=== PATIENT | female | born 1965 | race Caucasian/White ===

== ENCOUNTER 2016-11-21 15:29 | Emergency (ER) | payer BC, OTHER ==
--- NOTE | 2016-11-21 16:00 | ERNOTE ---
Lower Extremity HPI - Narrative Date of Service: 11/21/16 - General Lower Extremities Pain: leg: left Time Seen by Provider: 11/21/16 15:49 Source: patient, RN notes reviewed Exam Limitations: no limitations - Immun/Allergies/Home Medications Immunizations: IMMUNIZATION HX Immunizations Up to Date Yes History of Influenza Vaccine Yes Hx Pneumococcal Vaccination Yes Allergies/Adverse Reactions: Allergies Allergy/AdvReac Type Severity Reaction Status Date / Time sumatriptan [From Imitrex] Allergy Severe Tongue Verified 05/15/15 17:11 Swelling sumatriptan succinate Allergy Severe Tongue Verified 05/15/15 17:11 [From Imitrex] Swelling Home Medications: HOME MEDICATIONS Hydrochlorothiazide [Hydrodiuril] 25 mg PO DAILY 11/17/14 [Last Taken Unknown] Levothyroxine Sodium [Synthroid] 50 mcg PO DAILY 11/17/14 [Last Taken Unknown] Multivitamins [Multivitamin Klaus] 1 cap PO DAILY 11/17/14 [Last Taken Unknown] Omeprazole [Prilosec] 20 mg PO DAILY 11/17/14 [Last Taken Unknown] - History of Present Illness Narrative: James is a 51 year old female who presents to the ED from home for left calf pain. She had a lung nodule removed on 11/15/16 at [facility]. She had a DVT after a Whipple procedure approximately 2 years ago. She began having pain approximately 2 hours ago without incident. She is not currently on any anticoagulants. She has not taken anything for pain. Occurred: this afternoon Method of Injury: Reports: no apparent injury Prior Treament: Reports: similar symptoms before Review of Systems - Review of Systems Constitutional: Absent: fever, chills EYE: Present: no symptoms reported ENT: Present: no symptoms reported Respiratory: Absent: shortness of breath, cough Cardiology: Absent: chest pain, edema, claudication Gastrointestinal/Abdominal: Absent: nausea, vomiting Genitourinary: Present: no symptoms reported Musculoskeletal: Present: muscle pain. Absent: joint pain, joint swelling Skin: Absent: rash, lesions, lumps, change in color Neurological: Absent: weakness, numbness, tingling Endocrine: Present: no symptoms reported Hematologic/Lymphatic: Present: no symptoms reported Psych: Present: no symptoms reported - Patient's Past Medical History Patient History - Medical: Arthritis, GERD, Headache, Hypothyroidism, Migraines Patient History - Cardiac/Respiratory: Deep Vein Thrombosis, Pulmonary Embolism , Other - Pulmonary nodule Patient History - Cancer: Pancreatic Patient History - Surgical Procedures: Other - Pulmonary nodule removed Patient History - Other: None LMP (females 10-50): Menopausal - Family History Mother Family History - Medical: , Diabetes Type 2 Family History - Cardiac/Respiratory: CVA/Stroke, Myocardial Infarction Father Family History - Medical: Family History - Cardiac/Respiratory: CHF, Myocardial Infarction - Social History Living Situations: home Abuse History: No History of abuse Psych History: No pertinent hx Smoking Status: Former smoker Alcohol Use: rarely Drug Use: none - Immunizations Immunizations Up to Date: Yes Hx Pneumococcal Vaccination: Yes History of Influenza Vaccine: Yes Physical Exam - Physical Exam General Appearance: Present: wd/wn, alert, no apparent distress Neck: Present: normal inspection, nontender, supple Respiratory: Present: no respiratory distress, normal breath sounds, no accessory muscle use, lungs clear Cardiovascular/Chest: Present: regular rate, rhythm, no murmur, normal peripheral pulses Extremity Exam: Present: normal inspection, no edema, normal range of motion, other - mild tenderness in left calf, no redness or induration, negative Gina' s sign Neurological Exam: Present: alert, oriented, normal mood/affect, no motor/ sensory deficits Skin Exam: Present: normal color, warm/dry ED Progress - Vital Signs Patient's Vital Signs:: I have reviewed the patient's vital signs. Vital Signs: Vital Signs 11/21/16 15:38 Temperature 37.2 C Pulse Rate 100 Respiratory 18 Rate Blood Pressure 136/83 O2 Sat by Pulse 96 Oximetry - CT/Ultrasound CT/Ultrasound Narrative: US of left lower extremity negative for DVT - Progress/Reassessment Chief Complaint: Lower Extremity Pain/ Injury Progress:: Unchanged Departure Clinical Impression: Pain of left calf - Departure Disposition: Home self-care Condition: Good Instructions: Deep Vein Thrombosis Additional Instructions: Continue your current medications Follow up with any other concerns Referrals: Dylan Huggins DO [Primary Care Provider] -
[2016-11-21 17:02] VITALS: BP 128/92
== END 2016-11-21 17:03 | disposition home or self-care (01) ==
LOC: ER 15:29
DX: M79.662 Pain in left lower leg (principal); Z85.07 Personal history of malignant neoplasm of pancreas; Z87.891 Personal history of nicotine dependence

== ENCOUNTER 2017-06-19 10:23 | Emergency (ER) | payer BC, OTHER ==
--- NOTE | 2017-06-19 10:50 | ERNOTE ---
Dyspnea - General Presenting Symptoms: shortness of breath, difficulty of breathing Time Seen by Provider: 06/19/17 10:33 Exam Limitations: no limitations - Immun/Allergies/Home Medications Immunizations: IMMUNIZATION HX Immunizations Up to Date Yes History of Influenza Vaccine No Hx Pneumococcal Vaccination No Allergies/Adverse Reactions: Allergies sumatriptan [From Imitrex] Allergy (Severe, Verified 05/15/15 17:11) Tongue Swelling sumatriptan succinate [From Imitrex] Allergy (Severe, Verified 05/15/15 17:11) Tongue Swelling Home Medications: HOME MEDICATIONS Levothyroxine Sodium [Synthroid] 50 mcg PO DAILY 11/17/14 [Last Taken Unknown] Multivitamins [Multivitamin Klaus] 1 cap PO DAILY 11/17/14 [Last Taken Unknown] Omeprazole [Prilosec] 20 mg PO DAILY 11/17/14 [Last Taken Unknown] Cefdinir [Omnicef] 300 mg PO Q12H 06/19/17 [Last Taken Unknown] Enoxaparin Sodium [Lovenox] 100 mg SQ DAILY 06/19/17 [Last Taken Unknown] Furosemide [Lasix] 40 mg PO DAILY 06/19/17 [Last Taken Unknown] HYDROcodone/ACETAMINOPHEN [[place] 5-325 Tablet] 1 - 2 tab PO Q4H PRN 06/19/17 [ Last Taken Unknown] Lipase/Protease/Amylase [Creon Dr 12,000 Units Capsule] 1 each PO TID 06/19/17 [ Last Taken Unknown] Spironolactone [Aldactone] 100 mg PO DAILY 06/19/17 [Last Taken Unknown] traZODone HCL [Trazodone HCl] 50 mg PO HS 06/19/17 [Last Taken Unknown] - History of Present Illness Narrative: Patient is undergoing therapy for both pancreatic cancer and a DVT and had her last chemotherapy done 2 days ago. While she is always somewhat short of breath last night and overnight as a sudden onset of increased shortness of breath. She describes the dyspnea as being at least moderate in intensity. Severity: moderate Treatment INDEX CLERK: by patient Initiating event: Reports: none Frequency of episodes: Reports: no prior episodes Associated Symptoms-Dyspnea: Reports: denies symptoms Prior Treatment: Reports: recently seen, treated by physician Review of Systems - Review of Systems Constitutional: Present: See HPI EYE: Present: no symptoms reported ENT: Present: no symptoms reported Respiratory: Present: See HPI, shortness of breath Cardiology: Present: no symptoms reported Gastrointestinal/Abdominal: Present: no symptoms reported Genitourinary: Present: no symptoms reported Musculoskeletal: Present: no symptoms reported Skin: Present: no symptoms reported Neurological: Present: no symptoms reported Endocrine: Present: no symptoms reported Hematologic/Lymphatic: Present: no symptoms reported Psych: Present: no symptoms reported - Patient's Past Medical History Patient History - Medical: Arthritis, GERD, Headache, Hypothyroidism, Migraines Patient History - Cardiac/Respiratory: Deep Vein Thrombosis, Pulmonary Embolism , Other Patient History - Cancer: Pancreatic Patient History - Surgical Procedures: Cancer Surgery, Other Patient History - Other: None - Family History Mother Family History - Medical: , Diabetes Type 2 Family History - Cardiac/Respiratory: CVA/Stroke, Myocardial Infarction Father Family History - Medical: Family History - Cardiac/Respiratory: CHF, Myocardial Infarction - Social History Living Situations: home Abuse History: No History of abuse Psych History: No pertinent hx Smoking Status: Never smoker Have you smoked in the past 12 months: No Do you dip or chew tobacco: No Alcohol Use: rarely Drug Use: none - Immunizations Immunizations Up to Date: Yes Hx Pneumococcal Vaccination: No History of Influenza Vaccine: No Physical Exam - Physical Exam General Appearance: Present: wd/wn, alert, moderate distress Head Exam: Present: normal inspection Eye Exam: Normal inspection: bilateral, PERRL: bilateral Ears, Nose, Throat: Present: normal ENT inspection, H, normal pharynx Neck: Present: normal inspection, nontender Respiratory: Present: no accessory muscle use, chest nontender, respiratory distress, other - patient has diminished breath sounds in both bases Cardiovascular/Chest: Present: regular rate, rhythm, no murmur, normal peripheral pulses Gastrointestinal/Abdominal: Present: normal bowel sounds, nontender, nondistended, soft, no organomegaly Rectal Exam: Present: deferred Back Exam: Present: normal inspection, normal range of motion Extremity Exam: Present: normal inspection, non-tender, no edema, normal range of motion Neurological Exam: Present: alert, oriented, normal mood/affect Skin Exam: Present: normal color, warm/dry Lymphatic Exam: Present: no adenopathy ED Progress - Results and Orders Patient's Lab Results:: I have reviewed the patient's lab results. - Vital Signs Patient's Vital Signs:: I have reviewed the patient's vital signs. Vital Signs: Vital Signs 06/19/17 06/19/17 10:30 10:36 Temperature 37.3 C Pulse Rate 103 H 103 H Respiratory 20 19 Rate Blood Pressure 124/91 124/91 O2 Sat by Pulse 98 97 Oximetry - X-Ray X-Ray #1 X-Ray: chest Interpretation: Reviewed by me - CT/Ultrasound CT/Ultrasound Narrative: CT of the chest was reviewed by me - Progress/Reassessment Chief Complaint: Dyspnea Plan - Plan Plan: After numerous and fairly lengthy discussions with the department of oncology at the [facility], it was recommended that the patient come to the emergency department where an oncology fellow can be consulted and they can arrange for an interventional radiology consult for tapping the lungs for the pleural effusion and consider a valve in the abdomen for the chronic ascites. Patient's vital signs are stable and I do not feel she needs to go by ambulance and my initial hope was that the Department of oncology could see her for seen tomorrow morning and arrange for all this is now patient, however they suggested that she go to emergency department tonight is that we'll be the quickest and the easiest for the patient. Patient's states that he'll be more than glad to drive his up and to arrange for all the tests to be undertaken there. Departure Clinical Impression: Pleural effusion Ascites Qualifiers: Ascites type: other type Qualified Code(s): R18.8 - Other ascites - Departure Disposition: Home self-care Condition: Good Instructions: Pleural Effusion, Ascites Referrals: Dylan Huggins DO [Primary Care Provider] -
[2017-06-19 11:13] LABS: Hematocrit 27.8 % (37.0-47.0); Hemoglobin 8.8 gm/dL (12.5-16.0); Mean Cell Volume 87.4 fl (78-100); Mean Corpuscular Hemoglobin 27.7 pg (27-31); Mean Corpuscular Hgb Conc 31.7 g/dl (32-36); Mean Platelet Volume 10.3 fl (6.0-9.5); Platelet Count 236 K/mm3 (150-450); Red Blood Count 3.18 M/mm3 (4.2-5.4); Red Cell Distribution Width 19.2 % (11.5-14.0); White Blood Count 50.3 K/mm3 (4.0-10.5)
[2017-06-19 11:20] LABS: Total Cells Counted 100
[2017-06-19 11:21] LABS: Prothrombin Time (Patient) 12.9 Seconds (9.4-11.4)
[2017-06-19 11:23] LABS: INR 1.24 INR (0.90-1.10); Partial Thrombolplastin Time 32.6 Seconds (24-32)
[2017-06-19 11:29] LABS: ALT 26 U/L (19-67); AST 53 U/L (0-48); Alkaline Phosphatase * 206 U/L (50-170); Anion Gap 10.5 mmol/L (6.8-13.8); BUN/Creatinine Ratio 15.5 (9.0-21.6); Bilirubin, Total 1.3 mg/dL (0.0-1.1); Blood Urea Nitrogen 11 mg/dL (3-23); Ca. Corrected For Albumin 8.6 mg/dL (8.4-10.2); Calcium * 7.3 mg/dL (7.9-10.9); Carbon Dioxide 27.1 mmol/L (24-32.6); Chloride 100 mmol/L (97-106); Glucose * 153 mg/dL (70-110); Magnesium 1.6 mg/dL (1.2-2.8); Potassium 3.6 mmol/L (3.4-4.6); Sodium 134 mmol/L (132-142); Total Protein 7.1 gm/dL (6.2-8.2); Troponin I Less than 0.017 ng/ml (0.00-0.10)
[2017-06-19 11:33] LABS: Band 12 % (0-2.0); Lymphocyte 3 % (20-51); Neutrophil 85 % (42-75); Neutrophil # 42.8 K/mm3 (1.3-6.0); Platelet Estimate Normal (NORMAL); Target Cells 2+
[2017-06-19 11:34] LABS: Anisocytosis 3+; Macrocytosis 2+
[2017-06-19 11:35] LABS: Schistocytes 1+
[2017-06-19 11:36] LABS: Dohle Bodies 1+; Tear Drop Cells 1+
[2017-06-19 14:39] LABS: Urine Bilirubin Negative (NEGATIVE); Urine Blood Negative /ul (NEGATIVE); Urine Ketone Negative (NEGATIVE); Urine Nitrite Negative (NEGATIVE); Urine Protein Negative (NEGATIVE); Urine Specific Gravity <=1.005 SP.GR. (1.005-1.010); Urine Urobilinogen Normal (NORMAL); Urine pH 5.5 pH (5.0-7.0)
[2017-06-19 14:46] LABS: Urine Appearance Clear; Urine Bacteria None Seen; Urine Color Yellow; Urine RBC None Seen /hpf (0-5); Urine WBC None Seen /hpf (0-5)
[2017-06-19 16:27] VITALS: BP 103/73
== END 2017-06-19 16:07 | disposition short-term general hospital (02) ==
LOC: ER 10:23
DX: J90 Pleural effusion, not elsewhere classified (principal); R18.8 Other ascites; M19.90 Unspecified osteoarthritis, unspecified site; K21.9 Gastro-esophageal reflux disease without esophagitis; E03.9 Hypothyroidism, unspecified; Z86.718 Personal history of other venous thrombosis and embolism; Z86.711 Personal history of pulmonary embolism; Z79.01 Long term (current) use of anticoagulants; Z85.07 Personal history of malignant neoplasm of pancreas

== ENCOUNTER 2017-08-30 20:35 | Emergency (ER) | payer BC, OTHER ==
[2017-08-30] MEDS ORDERED: PROMETHAZINE HCL 25 MG in DEXTROSE 5 % IN WATER 50 ML IV ONE ×2 (20:50)
--- NOTE | 2017-08-30 21:04 | ERNOTE ---
ER Female HPI Date of Service: 08/30/17 Stated Complaint: CAN'T PEE Time Seen by Provider: 08/30/17 20:37 Source: patient Exam Limitations: no limitations Immunizations: IMMUNIZATION HX Immunizations Up to Date Yes History of Influenza Vaccine Yes Hx Pneumococcal Vaccination Yes Allergies/Adverse Reactions: Allergies sumatriptan [From Imitrex] Allergy (Severe, Verified 05/15/15 17:11) Tongue Swelling sumatriptan succinate [From Imitrex] Allergy (Severe, Verified 05/15/15 17:11) Tongue Swelling Home Medications: HOME MEDICATIONS Levothyroxine Sodium [Synthroid] 50 mcg PO DAILY 11/17/14 [Last Taken Unknown] Multivitamins [Multivitamin Klaus] 1 cap PO DAILY 11/17/14 [Last Taken Unknown] Omeprazole [Prilosec] 20 mg PO DAILY 11/17/14 [Last Taken Unknown] Cefdinir [Omnicef] 300 mg PO Q12H 06/19/17 [Last Taken Unknown] Enoxaparin Sodium [Lovenox] 100 mg SQ DAILY 06/19/17 [Last Taken Unknown] Furosemide [Lasix] 40 mg PO DAILY 06/19/17 [Last Taken Unknown] HYDROcodone/ACETAMINOPHEN [[place] 5-325 Tablet] 1 - 2 tab PO Q4H PRN 06/19/17 [ Last Taken Unknown] Lipase/Protease/Amylase [Creon Dr 12,000 Units Capsule] 1 each PO TID 06/19/17 [ Last Taken Unknown] Spironolactone [Aldactone] 100 mg PO DAILY 06/19/17 [Last Taken Unknown] traZODone HCL [Trazodone HCl] 50 mg PO HS 06/19/17 [Last Taken Unknown] - History of Present Illness Narrative: This patient presents to the emergency room for sensation of urinary retention and inability to urinate today. She doesn't have any dysuria or urinary pain or urgency or dysuria. She states that she is unable to urinate. This patient' s history is significant for pancreatic cancer. Patient also complains of the sensation of pressure and distention in her suprapubic area of her belly. Review of Systems - Review of Systems Constitutional: Present: fatigue, malaise EYE: Present: no symptoms reported ENT: Present: no symptoms reported Respiratory: Present: no symptoms reported Cardiology: Present: no symptoms reported Gastrointestinal/Abdominal: Present: no symptoms reported Genitourinary: Present: See HPI Musculoskeletal: Present: no symptoms reported Skin: Present: no symptoms reported - Patient's Past Medical History Patient History - Medical: Arthritis, GERD, Headache, Hypothyroidism, Migraines Patient History - Cardiac/Respiratory: Deep Vein Thrombosis, Pulmonary Embolism , Other Patient History - Cancer: Pancreatic Patient History - Surgical Procedures: Cancer Surgery, Other Patient History - Other: None - Family History Mother Family History - Medical: , Diabetes Type 2 Family History - Cardiac/Respiratory: CVA/Stroke, Myocardial Infarction Father Family History - Medical: Family History - Cardiac/Respiratory: CHF, Myocardial Infarction - Social History Living Situations: home Abuse History: No History of abuse Psych History: No pertinent hx Smoking Status: Never smoker Alcohol Use: none Drug Use: none - Immunizations Immunizations Up to Date: Yes Hx Pneumococcal Vaccination: Yes History of Influenza Vaccine: Yes Physical Exam - Physical Exam General Appearance: Present: other - patient does have a history of pancreatic cancer she is thin she appears pale but she is not in any distress. Head Exam: Present: normal inspection, no evidence of injury Respiratory: Present: no respiratory distress, normal breath sounds, no accessory muscle use, chest nontender, lungs clear Cardiovascular/Chest: Present: regular rate, rhythm, no murmur, normal peripheral pulses Gastrointestinal/Abdominal: Present: normal bowel sounds, soft, other - there appears to be moderate suprapubic fullness and tenderness upon examination. I believe I am feeling a distended bladder on this patient ED Progress - Results and Orders Patient's Lab Results:: I have reviewed the patient's lab results. - Vital Signs Patient's Vital Signs:: I have reviewed the patient's vital signs. Vital Signs: Vital Signs 08/30/17 20:38 Temperature 37.3 C Pulse Rate 80 Respiratory 18 Rate Blood Pressure 145/95 O2 Sat by Pulse 99 Oximetry - Progress/Reassessment Chief Complaint: Genitourinary Problem Plan - Plan Plan: UA is negative for UTI. Will leave a Tristan in place pt is to follow up with PCP On Friday Departure Clinical Impression: Urinary retention with incomplete bladder emptying - Departure Disposition: Home self-care Condition: Good Instructions: Acute Urinary Retention, Female Referrals: Dylan Huggins DO [Primary Care Provider] -
[2017-08-30 21:15] LABS: Hematocrit 31.1 % (37.0-47.0); Hemoglobin 9.8 gm/dL (12.5-16.0); Mean Cell Volume 84.1 fl (78-100); Mean Corpuscular Hemoglobin 26.5 pg (27-31); Mean Corpuscular Hgb Conc 31.5 g/dl (32-36); Mean Platelet Volume 9.6 fl (6.0-9.5); Neutrophil # 4.8 K/mm3 (1.3-6.0); Neutrophil % 76.8 % (42-75.0); Platelet Count 233 K/mm3 (150-450); Red Cell Distribution Width 18.5 % (11.5-14.0); White Blood Count 6.2 K/mm3 (4.0-10.5)
[2017-08-30 21:21] LABS: Urine Appearance Clear; Urine Bilirubin Negative (NEGATIVE); Urine Color Yellow; Urine Ketone Negative (NEGATIVE)
[2017-08-30 21:22] LABS: Urine Bacteria None Seen; Urine Blood Negative /ul (NEGATIVE); Urine Nitrite Negative (NEGATIVE); Urine Protein Negative (NEGATIVE); Urine RBC None Seen /hpf (0-5); Urine Specific Gravity 1.015 SP.GR. (1.005-1.010); Urine Urobilinogen Normal (NORMAL); Urine WBC None Seen /hpf (0-5)
[2017-08-30 22:17] VITALS: BP 137/84
== END 2017-08-30 21:35 | disposition home or self-care (01) ==
LOC: ER 20:35
PROC: 0T9B70Z Drainage of Bladder with Drainage Device, Via Natural or Artificial Opening (ICD-10-PCS; principal; 2017-08-30)
DX: R33.9 Retention of urine, unspecified (principal); Z85.07 Personal history of malignant neoplasm of pancreas; Z86.718 Personal history of other venous thrombosis and embolism; Z86.711 Personal history of pulmonary embolism

== ENCOUNTER 2017-09-01 13:16 | Emergency (ER) | payer BC, OTHER ==
--- NOTE | 2017-09-01 14:51 | ERNOTE ---
ER Female HPI Date of Service: 09/01/17 Stated Complaint: CHECK CATH Presenting Symptoms: other - No urine output from catheter Time Seen by Provider: 09/01/17 14:24 Source: patient, family, RN notes reviewed, past records Exam Limitations: no limitations Immunizations: IMMUNIZATION HX Immunizations Up to Date Yes History of Influenza Vaccine Yes Hx Pneumococcal Vaccination Yes Allergies/Adverse Reactions: Allergies sumatriptan [From Imitrex] Allergy (Severe, Verified 09/01/17 13:54) Tongue Swelling sumatriptan succinate [From Imitrex] Allergy (Severe, Verified 09/01/17 13:54) Tongue Swelling Home Medications: HOME MEDICATIONS Levothyroxine Sodium [Synthroid] 50 mcg PO DAILY 11/17/14 [Last Taken Unknown] Multivitamins [Multivitamin Klaus] 1 cap PO DAILY 11/17/14 [Last Taken Unknown] Omeprazole [Prilosec] 20 mg PO DAILY 11/17/14 [Last Taken Unknown] Cefdinir [Omnicef] 300 mg PO Q12H 06/19/17 [Last Taken Unknown] Enoxaparin Sodium [Lovenox] 100 mg SQ DAILY 06/19/17 [Last Taken Unknown] Furosemide [Lasix] 40 mg PO DAILY 06/19/17 [Last Taken Unknown] HYDROcodone/ACETAMINOPHEN [[place] 5-325 Tablet] 1 - 2 tab PO Q4H PRN 06/19/17 [ Last Taken Unknown] Lipase/Protease/Amylase [Creon Dr 12,000 Units Capsule] 1 each PO TID 06/19/17 [ Last Taken Unknown] Spironolactone [Aldactone] 100 mg PO DAILY 06/19/17 [Last Taken Unknown] traZODone HCL [Trazodone HCl] 50 mg PO HS 06/19/17 [Last Taken Unknown] Cefdinir 300 mg PO BID #14 capsule 09/01/17 [Last Taken Unknown] Phenazopyridine HCl [Pyridium] 200 mg PO Q8H PRN #6 tablet 09/01/17 [Last Taken Unknown] - History of Present Illness Narrative: James is a 52 year old female who presents with little to no urinary output from her catheter that was inserted here 2 days ago. She was experiencing urinary retention and was unable to void on her own. A arreaga catheter was inserted. She did not have any problems with it until this morning when she noticed that it was not draining and she felt like her bladder was full. She reports that she felt like she might have a UTI when she was seen initially. Her UA was unremarkable at that time. She is not taking any new medications aside from being a a different chemotherapy drug for her past 2 treatments. She reports that she is tolerating this well aside from having diarrhea. The only pain she reports currently is due to her hemorrhoids. Date (Duration): 09/01/17 Time (Timing): 08:30 Prior Treatment: Present: recently seen Review of Systems - Review of Systems Constitutional: Present: fatigue. Absent: fever, chills EYE: Present: no symptoms reported ENT: Present: no symptoms reported Respiratory: Absent: shortness of breath, cough Cardiology: Absent: chest pain, syncope Gastrointestinal/Abdominal: Present: diarrhea. Absent: vomiting Genitourinary: Present: pain, decreased urinary output Musculoskeletal: Absent: back pain, neck pain Skin: Present: lesions. Absent: rash, lumps Neurological: Absent: headache, dizziness/light-headedness Endocrine: Present: no symptoms reported Hematologic/Lymphatic: Absent: easy bruising, easy bleeding Psych: Present: no symptoms reported - Patient's Past Medical History Patient History - Medical: Arthritis, GERD, Headache, Hypothyroidism, Migraines Patient History - Cardiac/Respiratory: Deep Vein Thrombosis, Pulmonary Embolism , Other Patient History - Cancer: Pancreatic Patient History - Surgical Procedures: Cancer Surgery, Other Patient History - Other: None - Family History Mother Family History - Medical: , Diabetes Type 2 Family History - Cardiac/Respiratory: CVA/Stroke, Myocardial Infarction Father Family History - Medical: Family History - Cardiac/Respiratory: CHF, Myocardial Infarction - Social History Living Situations: home Abuse History: No History of abuse Psych History: No pertinent hx - Immunizations Immunizations Up to Date: Yes Hx Pneumococcal Vaccination: Yes History of Influenza Vaccine: Yes Physical Exam - Physical Exam General Appearance: Present: alert, no apparent distress, thin Respiratory: Present: no respiratory distress, normal breath sounds, no accessory muscle use, lungs clear Cardiovascular/Chest: Present: regular rate, rhythm, no murmur, normal peripheral pulses Gastrointestinal/Abdominal: Present: normal bowel sounds, nontender, soft, distended - ascites present. Absent: tenderness Extremity Exam: Present: normal inspection, normal range of motion, no edema Neurological Exam: Present: alert, oriented, normal mood/affect, no motor/ sensory deficits Skin Exam: Present: warm/dry, other - petichiae noted on forearms ED Progress - Results and Orders Patient's Lab Results:: I have reviewed the patient's lab results. - Vital Signs Patient's Vital Signs:: I have reviewed the patient's vital signs. Vital Signs: Vital Signs 09/01/17 13:51 Temperature 37.2 C Pulse Rate 80 Respiratory 15 Rate Blood Pressure 114/80 O2 Sat by Pulse 100 Oximetry - Progress/Reassessment Chief Complaint: Genitourinary Problem Progress:: Improved Plan - Plan Plan: The original arreaga catheter was irrigated and still would not drain. It was removed. The patient attempted to void at that time but was unable. A new catheter was inserted. Her urine does show a possible UTI today and she will be started on cefdinir. A culture is pending. Her lab work is stable. She is scheduled for f/u with her PCP tomorrow. Departure Clinical Impression: Urinary tract infection Qualifiers: Urinary tract infection type: site unspecified Hematuria presence: with hematuria Qualified Code(s): N39.0 - Urinary tract infection, site not specified Arreaga catheter problem Qualifiers: Encounter type: initial encounter Qualified Code(s): T83.9XXA - Unspecified complication of genitourinary prosthetic device, implant and graft, initial encounter - Departure Disposition: Home Follow Up Needed Condition: Fair Instructions: Urinary Tract Infection, Adult, [id number] Additional Instructions: Follow up with Dr. Huggins tomorrow as scheduled, or return to ER if you have more difficulties between now and then Referrals: Dylan Huggins DO [Primary Care Provider] - Prescriptions: Cefdinir 300 mg PO BID #14 capsule Phenazopyridine HCl [Pyridium] 200 mg PO Q8H PRN #6 tablet PRN Reason: Bladder Spasms
[2017-09-01 15:05] LABS: Urine Bilirubin Negative (NEGATIVE); Urine Blood 250 /ul (NEGATIVE); Urine Ketone Negative (NEGATIVE); Urine Nitrite Negative (NEGATIVE); Urine Protein Negative (NEGATIVE); Urine Urobilinogen Normal (NORMAL); Urine pH 5.5 pH (5.0-7.0)
[2017-09-01 15:19] LABS: Urine Appearance Slightly Cloudy; Urine Bacteria TRACE; Urine Color Yellow; Urine RBC 25-50 /hpf (0-5); Urine WBC TRACE /hpf (0-5)
[2017-09-01 15:31] LABS: Hemoglobin 9.3 gm/dL (12.5-16.0); Mean Cell Volume 86.5 fl (78-100); Mean Corpuscular Hemoglobin 26.8 pg (27-31); Mean Platelet Volume 9.7 fl (6.0-9.5); Platelet Count 166 K/mm3 (150-450); Red Blood Count 3.47 M/mm3 (4.2-5.4); Red Cell Distribution Width 18.6 % (11.5-14.0); White Blood Count 5.7 K/mm3 (4.0-10.5)
[2017-09-01 15:33] LABS: Total Cells Counted 100
[2017-09-01 15:42] LABS: INR 1.31 INR (0.90-1.10); Partial Thrombolplastin Time 29.2 Seconds (24-32); Prothrombin Time (Patient) 13.1 Seconds (9.0-11.0)
[2017-09-01 15:46] LABS: Albumin * 1.9 gm/dl (3.4-5.0); Anion Gap 9.3 mmol/L (6.8-13.8); BUN/Creatinine Ratio 21.7 (9.0-21.6); Bilirubin, Total 1.4 mg/dL (0.0-1.1); Ca. Corrected For Albumin 9.5 mg/dL (8.4-10.2); Calcium * 8.1 mg/dL (7.9-10.9); Potassium 4.3 mmol/L (3.4-4.6); Total Protein 7.2 gm/dL (6.2-8.2)
[2017-09-01 15:54] VITALS: BP 116/75
[2017-09-01 15:56] LABS: Lymphocyte 15 % (20-51); Monocyte 1 % (0-9); Neutrophil 84 % (42-75); Neutrophil # 4.8 K/mm3 (1.3-6.0)
[2017-09-01 15:58] LABS: Anisocytosis 1+
[2017-09-01 15:59] LABS: Platelet Estimate Normal (NORMAL)
[2017-09-01] MEDS ORDERED: PHENAZOPYRIDINE HCL 100 MG TABLET PO ONE (16:23)
[2017-09-01] MEDS ORDERED: PHENAZOPYRIDINE HCL 100 MG TABLET ONE (16:31)
[2017-09-01] MEDS ORDERED: CEFDINIR 300 MG CAPSULE PO ONE (17:00)
== END 2017-09-01 16:36 | disposition home or self-care (01) ==
LOC: ER 13:16
PROC: 0T2BX0Z Change Drainage Device in Bladder, External Approach (ICD-10-PCS; principal; 2017-09-01)
PROC: BT00ZZZ Plain Radiography of Bladder (ICD-10-PCS; 2017-09-01)
DX: N39.0 Urinary tract infection, site not specified (principal); T83.9XXA Unspecified complication of genitourinary prosthetic device, implant and graft, initial encounter; Z85.07 Personal history of malignant neoplasm of pancreas

== ENCOUNTER 2017-09-22 17:28 | Emergency (ER) | payer BC, OTHER ==
[2017-09-22] MEDS ORDERED: NORMAL SALINE IV PRN (18:32)
--- NOTE | 2017-09-22 18:39 | ERNOTE ---
Medical Problem HPI - Narrative Date of Service: 09/22/17 - General Chief Complaint: General Assessment Time Seen by Provider: 09/22/17 17:59 Source: patient, family Exam Limitations: no limitations - Immun/Allergies/Home Medications Immunizations: IMMUNIZATION HX Immunizations Up to Date Yes History of Influenza Vaccine Yes Hx Pneumococcal Vaccination Yes Allergies/Adverse Reactions: Allergies sumatriptan [From Imitrex] Allergy (Severe, Verified 09/22/17 17:38) Tongue Swelling sumatriptan succinate [From Imitrex] Allergy (Severe, Verified 09/22/17 17:38) Tongue Swelling Home Medications: HOME MEDICATIONS Levothyroxine Sodium [Synthroid] 50 mcg PO DAILY 11/17/14 [Last Taken Unknown] Multivitamins [Multivitamin Klaus] 1 cap PO DAILY 11/17/14 [Last Taken Unknown] Omeprazole [Prilosec] 20 mg PO DAILY 11/17/14 [Last Taken Unknown] Cefdinir [Omnicef] 300 mg PO Q12H 06/19/17 [Last Taken Unknown] Enoxaparin Sodium [Lovenox] 100 mg SQ DAILY 06/19/17 [Last Taken Unknown] Furosemide [Lasix] 40 mg PO DAILY 06/19/17 [Last Taken Unknown] HYDROcodone/ACETAMINOPHEN [[place] 5-325 Tablet] 1 - 2 tab PO Q4H PRN 06/19/17 [ Last Taken Unknown] Lipase/Protease/Amylase [Creon Dr 12,000 Units Capsule] 1 each PO TID 06/19/17 [ Last Taken Unknown] Spironolactone [Aldactone] 100 mg PO DAILY 06/19/17 [Last Taken Unknown] - History of Present History Narrative: Pt. comes in with c/o feeling weak and malaise or two days. Pt. has a recent hx of Cdiff but was discharged home four days ago and still is having liquid stools. Pt. 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 Pt. has a hx of pancreas CA that she is under treatment for at this time. Pt. denies any fevers, SOB, CP, nausea, or vomiting. Review of Systems - Review of Systems Constitutional: Present: recent illness, weakness, fatigue, malaise. Absent: fever, chills EYE: Present: no symptoms reported. Absent: double vision, vision changes ENT: Present: no symptoms reported Respiratory: Present: no symptoms reported. Absent: shortness of breath, cough , wheezing Cardiology: Present: no symptoms reported. Absent: chest pain, palpitations, edema Gastrointestinal/Abdominal: Present: diarrhea, abdominal pain, eating less, drinking less. Absent: nausea, vomiting Genitourinary: Present: no symptoms reported Musculoskeletal: Present: no symptoms reported. Absent: back pain, joint pain Skin: Present: no symptoms reported. Absent: rash, change in color Neurological: Present: no symptoms reported. Absent: headache, dizziness/light- headedness, numbness, tingling All Other Systems: All systems neg except as marked - Patient's Past Medical History Patient History - Medical: Arthritis, GERD, Headache, Hypothyroidism, Migraines Patient History - Cardiac/Respiratory: Deep Vein Thrombosis, Pulmonary Embolism , Other Patient History - Cancer: Pancreatic Patient History - Surgical Procedures: Cancer Surgery, Other Patient History - Other: None - Family History Mother Family History - Medical: , Diabetes Type 2 Family History - Cardiac/Respiratory: CVA/Stroke, Myocardial Infarction Father Family History - Medical: Family History - Cardiac/Respiratory: CHF, Myocardial Infarction - Social History Living Situations: home Abuse History: No History of abuse Psych History: No pertinent hx - Immunizations Immunizations Up to Date: Yes Hx Pneumococcal Vaccination: Yes History of Influenza Vaccine: Yes Physical Exam - Physical Exam General Appearance: Present: wd/wn, alert, mild distress Head Exam: Present: normal inspection, no evidence of injury Eye Exam: Normal inspection: bilateral Neck: Present: normal inspection, nontender, supple, full range of motion. Absent: lymphadenopathy (R), lymphadenopathy (L) Respiratory: Present: no respiratory distress, normal breath sounds, no accessory muscle use, chest nontender, lungs clear. Absent: crackles, rales, rhonchi, wheezing Cardiovascular/Chest: Present: regular rate, rhythm, no murmur, normal peripheral pulses Gastrointestinal/Abdominal: Present: tenderness - throughout, abnormal bowel sounds - rare, distended Back Exam: Present: normal inspection, normal range of motion, no CVA tenderness , no vertebral tenderness Extremity Exam: Present: non-tender, normal range of motion, extremity edema - + 4 pitting BLE from thighs to toes Neurological Exam: Present: alert, oriented, normal mood/affect, no motor/ sensory deficits Skin Exam: Present: cool/dry, pallor ED Progress - Date and Time Seen: Date and Time: 09/22/17 19:[address] Souza and as pt. either has bowel ischemia or sepsis with pancreatic cancer we feel that she needs to be transferred to a higher level of care and since pt. cancer doctors are at [facility] she would like to go there. 09/22/17 21:[address] Quintero and he accepts transfer of pt. - Results and Orders Patient's Lab Results:: I have reviewed the patient's lab results. - Vital Signs Patient's Vital Signs:: I have reviewed the patient's vital signs. Vital Signs: Vital Signs 09/22/17 17:34 Temperature 36.8 C Pulse Rate 89 Respiratory 12 Rate Blood Pressure 91/58 O2 Sat by Pulse 98 Oximetry - X-Ray X-Ray #1 X-Ray: abdomen Interpretation: Reviewed by me X-ray Comments: Abnormal air fluid levels indicative of either SBO, bowel ischemia, or severe colitis X-Ray #2 X-Ray: chest Interpretation: Reviewed by me X-ray Comments: scarring RLL scant pleural effusion RLL better than previous - Progress/Reassessment Chief Complaint: General Assessment Progress:: Unchanged Departure Clinical Impression: Abnormal abdominal x-ray, Lactic acidosis Sepsis Qualifiers: Sepsis type: sepsis due to unspecified organism Qualified Code(s): A41.9 - Sepsis, unspecified organism Pancreatic cancer Qualifiers: Pancreatic malignancy location: unspecified Qualified Code(s): C25.9 - Malignant neoplasm of pancreas, unspecified - Departure Disposition: [facility] Condition: Critical
[2017-09-22 19:06] LABS: Hematocrit 34.4 % (37.0-47.0); Hemoglobin 11.4 gm/dL (12.5-16.0); Mean Cell Volume 85.4 fl (78-100); Mean Corpuscular Hemoglobin 28.3 pg (27-31); Mean Corpuscular Hgb Conc 33.1 g/dl (32-36); Mean Platelet Volume 9.7 fl (6.0-9.5); Platelet Count 455 K/mm3 (150-450); Red Blood Count 4.03 M/mm3 (4.2-5.4); Red Cell Distribution Width 22.5 % (11.5-14.0); White Blood Count 15.1 K/mm3 (4.0-10.5)
[2017-09-22] MEDS ORDERED: MORPHINE SULFATE 2 MG/ML DISP.SYRIN IV ONE (19:11)
[2017-09-22 19:18] LABS: Anion Gap 13.4 mmol/L (6.8-13.8); BUN/Creatinine Ratio 12.5 (9.0-21.6); Bilirubin, Total 2.1 mg/dL (0.0-1.1); Ca. Corrected For Albumin 9.9 mg/dL (8.4-10.2); Calcium * 8.6 mg/dL (7.9-10.9); Carbon Dioxide 22.3 mmol/L (24-32.6); Potassium 2.7 mmol/L (3.4-4.6); Total Protein 5.5 gm/dL (6.2-8.2)
[2017-09-22 19:24] LABS: Total Cells Counted 100
[2017-09-22] MEDS ORDERED: CIPROFLOXACIN IN 5 % DEXTROSE 400 MG/200 ML BAG IV SCH (19:30)
[2017-09-22] MEDS ORDERED: metroNIDAZOLE/SODIUM CHLORIDE 500 MG/100 ML BAG IV SCH (19:30)
[2017-09-22] MEDS ORDERED: MORPHINE SULFATE 4 MG/ML SYRG ONE (19:33)
[2017-09-22 19:51] LABS: Band 13 % (0-2.0); Immature Granulocyte 7 (0-1); Lymphocyte 2 % (20-51); Monocyte 8 % (0-9); Neutrophil 70 % (42-75); Neutrophil # 10.6 K/mm3 (1.3-6.0); Platelet Estimate Increased (NORMAL)
[2017-09-22 19:52] LABS: Anisocytosis 2+
[2017-09-22] MEDS: POTASSIUM CHLORIDE 100 ML IV SCH (22:02)
[2017-09-22] MEDS: NORMAL SALINE IV SCH (22:02)
[2017-09-22] MEDS: POTASSIUM CHLORIDE IV SCH (22:02)
[2017-09-23 03:01] VITALS: BP 99/52
== END 2017-09-22 22:02 | disposition short-term general hospital (02) ==
LOC: ER 17:28
DX: A41.9 Sepsis, unspecified organism (principal); E87.2 Acidosis; C25.9 Malignant neoplasm of pancreas, unspecified; R93.5 Abnormal findings on diagnostic imaging of other abdominal regions, including retroperitoneum; E03.9 Hypothyroidism, unspecified; Z86.718 Personal history of other venous thrombosis and embolism; Z86.711 Personal history of pulmonary embolism; Z79.01 Long term (current) use of anticoagulants; K21.9 Gastro-esophageal reflux disease without esophagitis